=== PATIENT | female | born 1990 | race Two or more races ===

== ENCOUNTER 2024-06-10 23:40 | Emergency (ER) | payer BC ==
[~2024-06-10] VITALS: Ht 175.3 cm; Wt 89.5 kg
--- NOTE | 2024-06-10 23:59 | ED.PDOC ---
GI ASSESSMENT HPI Comments 34 year old female brought in by EMS presents to the ED with a chief complaint of abdominal pain onset today (06/10/24) about 6 hours ago. Patient states she had cholecystectomy [address] Krishnamurthy at [facility], states she was supposed to get drains removed today, did not make it to appointment due to pain. She noticed abdominal pain radiates to her back, is also experiencing nausea/vomiting. PMHx gallstones. Denies headache, dizziness, chest pain, shortness of breath, fever, chills. No other symptoms or modifying factors present at this time. Chief Complaint: Back Pain Time Seen by MD: 23:47 Reviewed Notes: Medications, Allergies Allergies: Coded Allergies: NO KNOWN ALLERGIES (Unverified , 06/10/24) Information Source: Patient, Emergency Med Personnel Mode of Arrival: EMS Timing: Hours Duration: Since onset Prehospital treatment: None Quality: Aching Severity: Moderate Recent: Recent Surgery Recent Hx of: Abdominal Operations Pain Location: Diffuse Modifying Factors: Nothing Associated sign and symptoms: Nausea, Vomiting, Abdominal Pain, Other (back pain) Past Medical History PAST MEDICAL HISTORY: Gallstones Surgical History: Cholecystectomy [employer] History: No Pertinent [employer] History Family History Family History: Reviewed,noncontributory to illness, No family hx of Cancer, No family hx of DM, No family hx of Heart mary beth, No family hx of HTN, No family hx ofKidney mary beth, No family hx of Liver mary beth, No family hx of Lung mary beth, No family hx of Stroke Social History Smoker: Non-Smoker Alcohol: Denies ETOH Use Drugs: Denies Drug Use Lives In: Home Constitutional: denies: chills, diaphoresis, fatigue, fever, malaise, sweats, weakness, others EENTM: denies: blurred vision, double vision, ear bleeding, ear discharge, ear drainage, ear pain, ear ringing, eye pain, eye redness, hearing loss, mouth pain, mouth swelling, nasal discharge, nose bleeding, nose congestion, nose pain, photophobia, tearing, throat pain, throat swelling, voice changes, others Respiratory: denies: cough, hemoptysis, orthopnea, SOB at rest, shortness of breath, SOB with excertion, stridor, wheezing, others Cardiovascular: denies: chest pain, dizzy spells, diaphoresis, Dyspnea on exertion, edema, irregular heart beat, left arm pain, lightheadedness, palpitations, PND, syncope, others Gastrointestinal: reports: abdominal pain, nausea, vomiting; denies: abdomen distended, blood streaked bowels, constipated, diarrhea, dysphagia, difficulty swallowing, hematemesis, melena, poor appetite, poor fluid intake, rectal bleeding, rectal pain, others Genitourinary: denies: abnormal vagina bleeding, burning, dyspareunia, dysuria, flank pain, frequency, hematuria, incontinence, pain, , vagina discharge, urgency, others Neurological: denies: dizziness, fainting, headache, left sided numbness, left sided weakness, numbness, paresthesia, pre-existing deficit, right sided numbness, right sided weakness, seizure, speech problems, tingling, tremors, weakness, others Musculoskeletal: reports: back pain; denies: gout, joint pain, joint swelling, muscle pain, muscle stiffness, neck pain, others Integumetry: denies: bruises, change in color, change in hair/nails, dryness, laceration, lesions, lumps, rash, wounds, others Allergic/Immunocompromised: denies: Difficulty Healing, Frequent Infections, Hives, Itching, others Hematologic/Lymphatic: denies: anemia, blood clots, easy bleeding, easy bruising, swollen glands, others Endocrine: denies: excessive hunger, excessive sweating, excessive thirst, excessive urination, flushing, intolerance to cold, intolerance to heat, unexplained weight gain, unexplained weight loss, others Psychiatric: denies: anxiety, bipolar disorder, depression, hopeless, panic disorder, schizophrenia, sleepless, suicidal, others All Other Systems: Reviewed and Negative Physical Exam General Appearance: No Apparent Distress, Normal HEENT: Normal ENT Inspection, Pharynx Normal, TMs Normal Neck: Full Range of Motion, Non-Tender, Normal, Normal Inspection Respiratory: Chest Non-Tender, Lungs Clear, No Accessory Muscle Use, No Respiratory Distress, Normal Breath Sounds Cardiovascular: No Edema, No JVD, No Murmur, No Gallop, Normal Peripheral Pulses, Regular Rate/Rhythm Breast Exam: Deferred Gastrointestinal: No Organomegaly, Non Tender, No Pulsatile Mass, Normal Bowel Sounds, Soft Genitalia: Deferred Pelvic: Deferred Rectal: Deferred Extremities: No calf tenderness, Normal capillary refill, Normal inspection, Normal range of motion, Non-tender, No pedal edema Musculoskeletal : Apperance: Normal Neurologic: Alert, wallpaper remover steam II-XII nml as Tested, No Motor Deficits, Normal Affect, Normal Mood, No Sensory Deficits Cerebellar Function: Normal Reflexes: Normal Skin: Dry, Normal Color, Warm Lymphatic: No Adenopathy Was a procedure done? Was a procedure done?: No GI differential Dx Differential Diagnosis: Cholangitis, Cholecystitis, Constipation, Gastritis/PUD, Gastroenteritis, Inflammatory BD, Pancreatitis, Dehydration X-Ray, Labs, Meds, VS Vital Signs Date Time Temp Pulse Resp B/P (MAP) Pulse Ox O2 Delivery O2 Flow Rate FiO2 06/11/24 00:55 97.3 79 17 98/54 (69) 95 97.3 06/10/24 23:48 99.2 90 22 130/104 (113) 96 99.2 06/10/24 23:43 86 Lab Test 06/10/24 23:59 Range/Units White Blood Count 7.5 4.4-10.8 10^3/uL Red Blood Count 3.91 L 4.0-5.20 10^6/uL Hemoglobin 12.1 L 12.2-16.2 g/dL Hematocrit 34.2 L 36.0-46.0 % Mean Corpuscular Volume 87.5 80.0-100.0 fL Mean Corpuscular Hemoglobin 30.9 28.0-32.0 pg Mean Corpuscular Hemoglobin Concent 35.4 32.0-36.0 g/dL Red Cell Distribution Width 17.7 H 11.8-14.3 % Platelet Count 422 140-450 10^3/uL Mean Platelet Volume 7.6 6.9-10.8 fL Neutrophils (%) (Auto) 64.6 37.0-80.0 % Lymphocytes (%) (Auto) 27.0 10.0-50.0 % Monocytes (%) (Auto) 5.1 0.0-12.0 % Eosinophils (%) (Auto) 2.7 0.0-7.0 % Basophils (%) (Auto) 0.6 0.0-2.0 % Neutrophils # (Auto) 4.9 1.6-8.6 10 ^3/uL Lymphocytes # (Auto) 2.0 0.4-5.4 10 ^3/uL Monocytes # (Auto) 0.4 0-1.3 10 ^3/uL Eosinophils # (Auto) 0.2 0-0.8 10 ^3/uL Basophils # (Auto) 0 0-0.2 10 ^3/uL Nucleated Red Blood Cells 0.0 % Sodium Level 141 136-145 mmol/L Potassium Level 3.7 3.5-5.1 mmol/L Chloride Level 108 H 98-107 mmol/L Carbon Dioxide Level 27 20-31 mmol/L Anion Gap 6 5-15 Blood Urea Nitrogen 9 9-23 mg/dL Creatinine 0.59 0.550-1.02 mg/dL Glomerular Filtration Rate Calc 123 >90 mL/min BUN/Creatinine Ratio 15.3 10.0-20.0 Serum Glucose 106 74-106 mg/dL Calcium Level 9.7 8.7-10.4 mg/dL Total Bilirubin 0.5 0.2-1.0 mg/dL Aspartate Amino Transferase (AST) 58 H 13-40 U/L Alanine Aminotransferase (ALT) 33 7-40 U/L Alkaline Phosphatase 97 46-116 U/L Total Protein 7.1 5.7-8.2 g/dL Albumin 4.3 3.2-4.8 g/dL Lipase 174 H 12-53 U/L Time of 1ST Reevaluation: 00:17 Reevaluation 1ST: Unchanged Patient Education/Counseling: Diagnosis, Treatment, Prognosis Family Education/Counseling: No Family Present Additional Information The following tests were ordered, and results were reviewed by me: CBC, CMP, LIPASE, EKG, CT AB PEL WITH IV CON Additional Information was gathered from interviewing the following independent historians: EMS I reviewed and agreed with the following test results read by other providers: CT AB PEL WITH IV CON I discussed treatment and results with medical personnel and: Patient Departure 1 Departure Time of Disposition: 05:06 (Patient with concerns for possible postsurgical infection. Labs were drawn and medications will retract and then patient eloped) Impression: Primary Impression: Abdominal pain Qualified Codes: R10.84 - Generalized abdominal pain Additional Impression: Status post cholecystectomy Disposition: 07 LEFT AWOL/ELOPED Condition: Serious Critical Care Note Critical Care Time?: No Stability Stability form required: No I personally scribed for RORY CRUZ MD ([email or web address]) on 06/10/24 at 23:58. Electronically submitted by Leni [email or web address]). I personally scribed for RORY CRUZ MD ([email or web address]) on 06/10/24 at 23:59. Electronically submitted by Leni Smith ([email or web address]). RORY CRUZ MD Jun 10, 2024 23:58
[2024-06-11] MEDS ORDERED: ONDANSETRON HCL 4 MG/2 ML VIAL IV ONE
[2024-06-11] MEDS ORDERED: MORPHINE SULFATE 4 MG/ML SYR/VIAL IV ONE
[2024-06-11] MEDS ORDERED: SODIUM CHLORIDE 0.9% 1,000 ML IV ONE
[2024-06-11 00:06] LABS: Basophils # (auto) 0 10 ^3/uL (0-0.2); Basophils % (auto) 0.6 % (0.0-2.0); Eosinophils # (auto) 0.2 10 ^3/uL (0-0.8); Eosinophils % (auto) 2.7 % (0.0-7.0); Hematocrit 34.2 % (36.0-46.0); Hemoglobin 12.1 g/dL (12.2-16.2); Mean Corpuscular Hemoglobin 30.9 pg (28.0-32.0); Mean Corpuscular Hgb Conc. 35.4 g/dL (32.0-36.0); Mean Corpuscular Volume 87.5 fL (80.0-100.0); Monocytes # (auto) 0.4 10 ^3/uL (0-1.3); Monocytes % (auto) 5.1 % (0.0-12.0); Neutrophils # (auto) 4.9 10 ^3/uL (1.6-8.6); Neutrophils % (auto) 64.6 % (37.0-80.0); Platelet Count (auto) 422 10^3/uL (140-450); Red Blood Cells 3.91 10^6/uL (4.0-5.20); Red Cell Distribution Width 17.7 % (11.8-14.3); White Blood Cell 7.5 10^3/uL (4.4-10.8)
[2024-06-11 00:25] LABS: Alanine Aminotransferase 33 U/L (7-40); Albumin 4.3 g/dL (3.2-4.8); Alkaline Phosphatase 97 U/L (46-116); Anion Gap 6 (5-15); BUN/Creatinine Ratio 15.3 (10.0-20.0); Blood Urea Nitrogen 9 mg/dL (9-23); Calcium 9.7 mg/dL (8.7-10.4); Carbon Dioxide 27 mmol/L (20-31); Potassium 3.7 mmol/L (3.5-5.1); Sodium 141 mmol/L (136-145); Total Protein 7.1 g/dL (5.7-8.2)
[2024-06-11 00:26] LABS: Bilirubin, Total 0.5 mg/dL (0.2-1.0)
[2024-06-11 00:34] LABS: Aspartate Aminotransferase 58 U/L (13-40); Chloride 108 mmol/L (98-107); Glucose 106 mg/dL (74-106); Lipase 174 U/L (12-53)
[2024-06-11 00:55] VITALS: BP 98/54; PULSE 79; RESP 17; TEMP 97.3; O2SAT 95
--- NOTE | 2024-06-11 10:32 | ECG ---
[facility] Test Date: 2024-06-10 Test Time: 23:43:29 Pat Name: ROSIE MAIN Department: ed Room: Gender: F Office Clinician: sajan : 1990 Requested By: RORY CRUZ Order Number: [id number] Reading MD: Jeremiah Gustafson Measurements Intervals [place] Rate: 86 P: 49 NE: 165 QRS: 67 QRSD: 98 T: 40 QT: 378 QTc: 452 Interpretive Statements Sinus rhythm Electronically Signed On 06-11-2024 22:41:47 PDT by Jeremiah Gustafson Please click the below link to view image of tracing.
== END 2024-06-11 01:09 | disposition left against medical advice (07) ==
LOC: EDUNIT# 23:40 → EDBD 23:40 → ER 23:40
DX: R10.84 Generalized abdominal pain (principal); M54.9 Dorsalgia, unspecified; Z90.49 Acquired absence of other specified parts of digestive tract
CPT/HCPCS: 36415; 80053; 83690; 85025; 93005

== ENCOUNTER 2025-01-13 14:15 | Outpatient (CLI) | payer BC ==
[2025-01-13 14:38] LABS: Hematocrit 37.3 % (36.0-46.0); Hemoglobin 12.9 g/dL (12.2-16.2); Mean Corpuscular Hemoglobin 32.0 pg (28.0-32.0); Mean Corpuscular Volume 92.6 fL (80.0-100.0); Nucleated Red Blood Cells % 0.1 %
[2025-01-13 15:15] LABS: Iron 60.0 ug/dL (50-170)
[2025-01-13 15:16] LABS: Triglycerides 163 mg/dL (< 150)
[2025-01-13 15:18] LABS: Cholesterol 179 mg/dL (< 200); HDL Cholesterol 45 mg/dL (40-59); Total Iron Binding Capacity 353.0 ug/dL (250-425)
[2025-01-13 15:22] LABS: Ferritin 7.8 ng/mL (10-291)
[2025-01-13 17:14] LABS: Free T4 (Free Thyroxine) 0.95 ng/dL (0.89-1.76)
[2025-01-14 15:04] LABS: Hepatitis A Total Antibody Positive (Negative); Hepatitis B Surface Antigen Negative (Negative); Hepatitis C Antibody Negative (Negative)
== END 2025-01-13 17:00 | disposition home or self-care (01) ==
LOC: LAB 14:15
PROVIDERS: ATTEND Licensed Practical Nurse
DX: Z13.1 Encounter for screening for diabetes mellitus (principal); E55.9 Vitamin D deficiency, unspecified; Z13.29 Encounter for screening for other suspected endocrine disorder; Z00.01 Encounter for general adult medical examination with abnormal findings; R53.0 Neoplastic (malignant) related fatigue
CPT/HCPCS: 36415; 80061; 82043; 82306; 82607; 82728; 82746; 83002; 83036; 83540; 83550; 84146; 84439; 84443; 85025; 86704; 86706; 86708; 86803; 87340